=== PATIENT | male | born 1975 | race African-American/Black ===

== ENCOUNTER 2017-09-22 11:41 | Emergency (ER) | payer SELFPAY ==
[2017-09-22] MEDS: PENICILLIN G BENZATHINE LA 2,400,000 UNIT/4 ML DISP.SYRIN. IM ×2 (12:15)
[2017-09-22 12:26] LABS: NEGATIVE OBC STREP NEG; POSITIVE OBC STREP POS
== END 2017-09-22 12:36 | disposition home or self-care (01) ==
LOC: ER 11:41
DX: J02.0 Streptococcal pharyngitis (principal)
CPT/HCPCS: 87880; 96372; 99283; J0561

== ENCOUNTER 2018-09-13 17:32 | Emergency (ER) | payer OTHER ==
[~2018-09-13] VITALS: Ht 170.2 cm; Wt 97.5 kg
[2018-09-13] MEDS ORDERED: ONDANSETRON ODT 4 MG TAB.RAPDIS. PO ONE (19:30)
[2018-09-13] MEDS ORDERED: KETOROLAC 60 MG/2 ML VIAL. IM ONE (19:30)
--- NOTE | 2018-09-13 20:15 | PHYS DOC ---
Past Medical History Past Medical History: Hypertension Past Surgical History: No Surgical History Alcohol Use: Occasionally Drug Use: None Adult General Chief Complaint Chief Complaint: HEADACHE HPI HPI Patient is a 42 year old [f__sex] who presents with [] Review of Systems Review of Systems Constitutional: Denies fever or chills [] Eyes: Denies change in visual acuity, redness, or eye pain [] HENT: Denies nasal congestion or sore throat [] Respiratory: Denies cough or shortness of breath [] Cardiovascular: No additional information not addressed in HPI [] GI: Denies abdominal pain, nausea, vomiting, bloody stools or diarrhea [] : Denies dysuria or hematuria [] Musculoskeletal: Denies back pain or joint pain [] Integument: Denies rash or skin lesions [] Neurologic: Denies headache, focal weakness or sensory changes [] Endocrine: Denies polyuria or polydipsia [] All other systems were reviewed and found to be within normal limits, except as documented in this note. Current Medications Current Medications Current Medications Medications (Trade) Dose Ordered Sig/Magalie Start Time Stop Time Status Last Admin Dose Admin Ketorolac Tromethamine (Toradol Im) 60 mg 1X ONCE 09/13/18 19:30 09/13/18 19:31 DC 09/13/18 19:30 60 MG Ondansetron HCl (Zofran Odt) 4 mg 1X ONCE 09/13/18 19:30 09/13/18 19:31 DC 09/13/18 19:30 4 MG Allergies Allergies Allergies Coded Allergies Type Severity Reaction Last Updated Verified No Known Drug Allergies 09/22/17 No Physical Exam Physical Exam Constitutional: Well developed, well nourished, no acute distress, non-toxic appearance. [] HENT: Normocephalic, atraumatic, bilateral external ears normal, oropharynx moist, no oral exudates, nose normal. [] Eyes: PERRLA, EOMI, conjunctiva normal, no discharge. [] Neck: Normal range of motion, no tenderness, supple, no stridor. [] Cardiovascular:Heart rate regular rhythm, no murmur [] Lungs & Thorax: Bilateral breath sounds clear to auscultation [] Abdomen: Bowel sounds normal, soft, no tenderness, no masses, no pulsatile masses. [] Skin: Warm, dry, no erythema, no rash. [] Back: No tenderness, no CVA tenderness. [] Extremities: No tenderness, no cyanosis, no clubbing, ROM intact, no edema. [] Neurologic: Alert and oriented X 3, normal motor function, normal sensory function, no focal deficits noted. [] Psychologic: Affect normal, judgement normal, mood normal. [] Current Patient Data Vital Signs Vital Signs Date Time Temp Pulse Resp B/P (MAP) Pulse Ox O2 Delivery O2 Flow Rate FiO2 09/13/18 19:44 86 16 98 09/13/18 17:46 98.8 156/94 (114) Room Air 98.8 EKG EKG [] Radiology/Procedures Radiology/Procedures [] Course & Med Decision Making Course & Med Decision Making Pertinent Labs and Imaging studies reviewed. (See chart for details) [] Dragon Disclaimer Dragon Disclaimer This electronic medical record was generated, in whole or in part, using a voice recognition dictation system. Departure Departure Impression: Primary Impression: Headache Disposition: 01 HOME, SELF-CARE Condition: STABLE Referrals: NO PCP (PCP) Patient Instructions: General Headache Without Cause Additional Instructions: You may continue your at home headache medications. Follow-up with your primary care provider for further management of your chronic migraines. If worsening return to the emergency department. BRENDA MONROY APRN Sep 13, 2018 20:15
[2018-09-13 20:27] VITALS: BP 144/82
== END 2018-09-13 20:28 | disposition home or self-care (01) ==
LOC: ER 17:32
DX: R51 Headache (principal); I10 Essential (primary) hypertension
CPT/HCPCS: 96372; 99283; J1885; Q0162

== ENCOUNTER 2018-11-23 21:53 | Inpatient (IN) | payer SELFPAY ==
[~2018-11-23] VITALS: Ht 170.2 cm; Wt 108.9 kg
--- NOTE | 2018-11-23 23:08 | PHYS DOC ---
Past Medical History Past Medical History: Hypertension (ATIF MALIN APRN) Past Surgical History: No Surgical History (ATIF MALIN APRN) Alcohol Use: Occasionally Drug Use: None (ATIF MALIN APRN) Adult General Chief Complaint Chief Complaint: ABDOMINAL PAIN HPI HPI 42-year-old male presents to ER via POV with complaints of 3 day history of right upper quadrant pain and abdominal bloating. Patient reports pain increases after eating. He reports he has never had gallbladder issues in the past. He denies any N/V/D, fever, urinary sxs, CP/palpitations, SOA, or back pain. He reports he took aspirin on Sat. for the pain otherwise no other OTC meds. He reports he did drink a beer tonight. (ATIF MALIN APRN) Review of Systems Review of Systems Constitutional: Denies fever or chills [] Eyes: Denies change in visual acuity, redness, or eye pain [] HENT: Denies nasal congestion or sore throat [] Respiratory: Denies cough or shortness of breath [] Cardiovascular: No additional information not addressed in HPI [] GI: Denies nausea, vomiting, bloody stools or diarrhea. Reports RUQ pain with abd bloating : Denies dysuria or hematuria [] Musculoskeletal: Denies back pain or joint pain [] Integument: Denies rash or skin lesions [] Neurologic: Denies headache, focal weakness or sensory changes [] All other systems were reviewed and found to be within normal limits, except as documented in this note. (ATIF MALIN APRN) Current Medications Current Medications Current Medications Medications (Trade) Dose Ordered Sig/Magalie Start Time Stop Time Status Last Admin Dose Admin Sodium Chloride 1,000 ml @ 1,000 mls/hr 1X ONCE 11/23/18 23:30 11/24/18 00:29 DC 11/23/18 23:18 1,000 MLS/HR (WOLFGANG DIAS DO) Allergies Allergies Allergies Coded Allergies Type Severity Reaction Last Updated Verified No Known Drug Allergies 09/22/17 No (WOLFGANG DIAS DO) Physical Exam Physical Exam Constitutional: Well developed, well nourished, no acute distress, non-toxic appearance. [] HENT: Normocephalic, atraumatic, bilateral ears normal, mucous membranes pink/ dry, no oral exudates, nose normal. [] Eyes: Pupils equal, conjunctiva normal, no discharge. [] Neck: Normal range of motion, no tenderness, supple, no stridor. [] Cardiovascular: Heart rate regular rhythm- 90's during exam, no murmur [] Lungs & Thorax: Bilateral breath sounds clear to auscultation. Resp. equal/ nonlabored Abdomen: Bowel sounds normal, soft/obese, tender RUQ, no rebound tenderness, no masses, no pulsatile masses. [] Skin: Warm, dry, no erythema, no rash. [] Back: No tenderness, no CVA tenderness. [] Extremities: No tenderness, no cyanosis, no clubbing, ROM intact, no edema. [] Neurologic: Alert and oriented X 3, normal motor function, normal sensory function, no focal deficits noted. [] Psychologic: Affect normal, judgement normal, mood normal. [] (REFFITT,ATIF Dorantes APRN) Current Patient Data Vital Signs Vital Signs Date Time Temp Pulse Resp B/P (MAP) Pulse Ox O2 Delivery O2 Flow Rate FiO2 11/23/18 23:30 94 18 156/84 (108) 96 Room Air 11/23/18 21:53 98.7 98.7 (DIAS,WOLFGANG R DO) Lab Values Laboratory Tests Test 11/23/18 23:00 White Blood Count 12.1 x10^3/uL (4.0-11.0) H Red Blood Count 5.07 x10^6/uL (4.30-5.70) Hemoglobin 14.1 g/dL (13.0-17.5) Hematocrit 42.6 % (39.0-53.0) Mean Corpuscular Volume 84 fL (79-100) Mean Corpuscular Hemoglobin 28 pg (25-35) Mean Corpuscular Hemoglobin Concent 33 g/dL (31-37) Red Cell Distribution Width 14.0 % (11.5-14.5) Platelet Count 218 x10^3/uL (140-400) Neutrophils (%) (Auto) 65 % (31-73) Lymphocytes (%) (Auto) 26 % (24-48) Monocytes (%) (Auto) 7 % (0-9) Eosinophils (%) (Auto) 1 % (0-3) Basophils (%) (Auto) 1 % (0-3) Neutrophils # (Auto) 7.8 x10^3uL (1.8-7.7) H Lymphocytes # (Auto) 3.2 x10^3/uL (1.0-4.8) Monocytes # (Auto) 0.9 x10^3/uL (0.0-1.1) Eosinophils # (Auto) 0.1 x10^3/uL (0.0-0.7) Basophils # (Auto) 0.1 x10^3/uL (0.0-0.2) Sodium Level 138 mmol/L (136-145) Potassium Level 3.8 mmol/L (3.5-5.1) Chloride Level 99 mmol/L (98-107) Carbon Dioxide Level 28 mmol/L (21-32) Anion Gap 11 (6-14) Blood Urea Nitrogen 12 mg/dL (8-26) Creatinine 1.0 mg/dL (0.7-1.3) Estimated GFR (Cockcroft-Gault) 100.1 BUN/Creatinine Ratio 12 (6-20) Glucose Level 187 mg/dL (70-99) H Calcium Level 8.7 mg/dL (8.5-10.1) Total Bilirubin 0.3 mg/dL (0.2-1.0) Aspartate Amino Transferase (AST) 19 U/L (15-37) Alanine Aminotransferase (ALT) 37 U/L (16-63) Alkaline Phosphatase 65 U/L (46-116) Total Protein 7.2 g/dL (6.4-8.2) Albumin 3.6 g/dL (3.4-5.0) Albumin/Globulin Ratio 1.0 (1.0-1.7) Lipase 01648 U/L (73-393) H Ethyl Alcohol Level < 10 mg/dL (0-10) Laboratory Tests 11/23/18 23:00 Laboratory Tests 11/23/18 23:00 (WOLFGANG DIAS DO) Lab Values Laboratory Tests Test 11/23/18 23:00 White Blood Count 12.1 x10^3/uL (4.0-11.0) H Red Blood Count 5.07 x10^6/uL (4.30-5.70) Hemoglobin 14.1 g/dL (13.0-17.5) Hematocrit 42.6 % (39.0-53.0) Mean Corpuscular Volume 84 fL (79-100) Mean Corpuscular Hemoglobin 28 pg (25-35) Mean Corpuscular Hemoglobin Concent 33 g/dL (31-37) Red Cell Distribution Width 14.0 % (11.5-14.5) Platelet Count 218 x10^3/uL (140-400) Neutrophils (%) (Auto) 65 % (31-73) Lymphocytes (%) (Auto) 26 % (24-48) Monocytes (%) (Auto) 7 % (0-9) Eosinophils (%) (Auto) 1 % (0-3) Basophils (%) (Auto) 1 % (0-3) Neutrophils # (Auto) 7.8 x10^3uL (1.8-7.7) H Lymphocytes # (Auto) 3.2 x10^3/uL (1.0-4.8) Monocytes # (Auto) 0.9 x10^3/uL (0.0-1.1) Eosinophils # (Auto) 0.1 x10^3/uL (0.0-0.7) Basophils # (Auto) 0.1 x10^3/uL (0.0-0.2) Sodium Level 138 mmol/L (136-145) Potassium Level 3.8 mmol/L (3.5-5.1) Chloride Level 99 mmol/L (98-107) Carbon Dioxide Level 28 mmol/L (21-32) Anion Gap 11 (6-14) Blood Urea Nitrogen 12 mg/dL (8-26) Creatinine 1.0 mg/dL (0.7-1.3) Estimated GFR (Cockcroft-Gault) 100.1 BUN/Creatinine Ratio 12 (6-20) Glucose Level 187 mg/dL (70-99) H Calcium Level 8.7 mg/dL (8.5-10.1) Total Bilirubin 0.3 mg/dL (0.2-1.0) Aspartate Amino Transferase (AST) 19 U/L (15-37) Alanine Aminotransferase (ALT) 37 U/L (16-63) Alkaline Phosphatase 65 U/L (46-116) Total Protein 7.2 g/dL (6.4-8.2) Albumin 3.6 g/dL (3.4-5.0) Albumin/Globulin Ratio 1.0 (1.0-1.7) Lipase 78000 U/L (73-393) H Ethyl Alcohol Level < 10 mg/dL (0-10) Laboratory Tests 11/23/18 23:00 Laboratory Tests 11/23/18 23:00 (ATIF MALIN APRN) EKG EKG [] (ATIF MALIN APRN) Radiology/Procedures Radiology/Procedures PROCEDURE: ABDOMEN LTD Clinical History: Right upper quadrant pain Technique: Sonographic examination of the right upper quadrant of the abdomen was performed and multiple static images were obtained. Comparison: none Findings: The majority of the liver is visualized and appears homogeneous. There is increased echogenicity which further limits ultrasound sensitivity for a possible solid liver lesion. The common bile duct appears normal and measures 5 mm in diameter. The gallbladder is contracted but likely normal. The pancreas is not well visualized due to overlying bowel gas. The right kidney appears normal and measures 12 cm in length. Impression: 1. Fatty infiltration of the liver. 2. No evidence of gallbladder disease. Electronically signed by: Misael Hudson III, MD (11/24/2018 12:05 AM) [facility] DICTATED and SIGNED BY: MISAEL HUDSON III, MD DATE: 11/24/18 0005 (ATIF MALIN APRN) Course & Med Decision Making Course & Med Decision Making Pertinent Labs and Imaging studies reviewed. (See chart for details) Pt was evaluated in the ER for c/o RUQ pain [place] [address] on his labs. Discussed this finding with pt and he continued to report he is not a heavy drinker and had only 1 beer earlier with his alcohol level <10 on labs. Pt had US of RUQ as he reported pain increased after meals- fatty liver noted otherwise no acute findings reported. Discussed admit with pt for further care/monitoring along with NPO status- he is agreeable with admit plan. Pt was provided with IV flds/pain meds and with admit with maintenance flds. Will admit to hospitalist services for further care/monitoring and consult GI with admit orders. (ATIF MALIN APRN) Dragon Disclaimer Dragon Disclaimer This electronic medical record was generated, in whole or in part, using a voice recognition dictation system. (ATIF MALIN APRN) Departure Departure Impression: Primary Impression: Acute pancreatitis Additional Impression: Abdominal pain Disposition: ADMITTED INPATIENT Admitting Physician: Other (Dr Prasad) (ATIF MALIN APRN) Condition: STABLE Referrals: NO PCP (PCP) Attending Signature Attending Signature I have reviewed the PA/CLOTHES SEPARATOR's note and plan of care. I was available for consultation as needed during the patient's visit in the emergency department. I agree with the clinical impression, plan, and disposition. (WOLFGANG DIAS DO) Problem Qualifiers ATIF MALIN APRN Nov 23, 2018 23:08 WOLFGANG DIAS DO Dec 12, 2018 13:16
[2018-11-23 23:09] LABS: BASO # 0.1 x10^3/uL (0.0-0.2); BASO % 1 % (0-3); EOS # 0.1 x10^3/uL (0.0-0.7); EOS % 1 % (0-3); HEMATOCRIT 42.6 % (39.0-53.0); HEMOGLOBIN 14.1 g/dL (13.0-17.5); LYMPH # 3.2 x10^3/uL (1.0-4.8); LYMPH % 26 % (24-48); MEAN CORPUSCULAR HEMOGLOBIN 28 pg (25-35); MEAN CORPUSCULAR HGB CONC 33 g/dL (31-37); MEAN CORPUSCULAR VOLUME 84 fL (79-100); MONO # 0.9 x10^3/uL (0.0-1.1); MONO % 7 % (0-9); NEUT # 7.8 x10^3uL (1.8-7.7); NEUT % 65 % (31-73); PLATELET COUNT 218 x10^3/uL (140-400); RED BLOOD COUNT 5.07 x10^6/uL (4.30-5.70); WHITE BLOOD COUNT 12.1 x10^3/uL (4.0-11.0)
[2018-11-23 23:17] LABS: CALCIUM 8.7 mg/dL (8.5-10.1); GFR 100.1; POTASSIUM 3.8 mmol/L (3.5-5.1)
[2018-11-23 23:24] LABS: ALBUMIN 3.6 g/dL (3.4-5.0); TOTAL BILIRUBIN 0.3 mg/dL (0.2-1.0); TOTAL PROTEIN 7.2 g/dL (6.4-8.2)
[2018-11-23] MEDS ORDERED: IV NORMAL SALINE 1000ML BAG 1,000 ML IV ONE (23:30)
--- NOTE | 2018-11-24 00:08 | RAD ---
Clinical History: Right upper quadrant pain Technique: Sonographic examination of the right upper quadrant of the abdomen was performed and multiple static images were obtained. Comparison: none Findings: The majority of the liver is visualized and appears homogeneous. There is increased echogenicity which further limits ultrasound sensitivity for a possible solid liver lesion. The common bile duct appears normal and measures 5 mm in diameter. The gallbladder is contracted but likely normal. The pancreas is not well visualized due to overlying bowel gas. The right kidney appears normal and measures 12 cm in length. Impression: 1. Fatty infiltration of the liver. 2. No evidence of gallbladder disease. Electronically signed by: Raza Maravilla III, MD (11/24/2018 12:05 AM) [facility]
[2018-11-24] MEDS ORDERED: ONDANSETRON PF 4 MG/2 ML VIAL. IV PRN (01:30)
[2018-11-24] MEDS ORDERED: MORPHINE SULFATE 4 MG/ML VIAL. IV PRN (01:30)
[2018-11-24] MEDS: IV NORMAL SALINE 1000ML BAG 1,000 ML IV SCH ×2 (02:31→09:53)
[2018-11-24] MEDS ORDERED: LISI2.5T PO (02:50)
--- NOTE | 2018-11-24 02:51 | NUR ---
The patient, SANDRA VALENCIA, 42 y/o, M admitted by JÚNIOR ESPARZA MD, was given written information regarding hospital policies, unit procedures and contact persons. Valuables were checked and left with patient.
[2018-11-24 03:00] VITALS: BP 132/69
[2018-11-24 07:00] VITALS: BP 147/90
--- NOTE | 2018-11-24 09:07 | PDOC2 ---
GI CONSULT Reason For Consult: Acute pancreatitis HPI: HPI: 42 y/o male admitted through ER. RUQ/epigastric pain radiating to back x 3-4 days. No n/v, diarrhea, constipation, or bleeding. Possibly precipitated by drinking more than usual because his cousins came to visit. Elevated WBC and lipase in ER. No CT done but normal GB on US. Says hasn't needed pain meds and feels hungry, would like to go home. Occasional heartburn improved w/ Tums PRN. No dysphagia or weight loss. No previous EGD or colonoscopy. No GB, liver, pancreas, or PUD history. Occasionally uses BC powder for headaches. Flips houses for a living. PMH: PMH: HTN FH: Family History: No pertinent hx (denies GI cancers, pancreatitis, and GB disease) Social History: Smoke: 1 pack per day ALCOHOL: heavy (says usually about 5 beers weekly but more recently for work and w/ family visiting) Drugs: None ROS: GEN: Denies fevers, chills, sweats HEENT: Denies blurred vision, sore throat CV: Denies chest pain RESP: Denies shortness of air, cough GI: Per HPI : Denies hematuria, dysuria ENDO: Denies weight changes NEURO: Denies confusion, dizziness MSK: Denies weakness, joint pain/swelling SKIN: Denies jaundice, pruritus Vitals: Vitals: Vital Signs Date Time Temp Pulse Resp B/P (MAP) Pulse Ox O2 Delivery O2 Flow Rate FiO2 11/24/18 07:00 97.7 73 18 147/90 (109) 96 Room Air 97.7 Labs: Labs: Laboratory Tests Test 11/23/18 23:00 White Blood Count 12.1 x10^3/uL (4.0-11.0) Red Blood Count 5.07 x10^6/uL (4.30-5.70) Hemoglobin 14.1 g/dL (13.0-17.5) Hematocrit 42.6 % (39.0-53.0) Mean Corpuscular Volume 84 fL (79-100) Mean Corpuscular Hemoglobin 28 pg (25-35) Mean Corpuscular Hemoglobin Concent 33 g/dL (31-37) Red Cell Distribution Width 14.0 % (11.5-14.5) Platelet Count 218 x10^3/uL (140-400) Neutrophils (%) (Auto) 65 % (31-73) Lymphocytes (%) (Auto) 26 % (24-48) Monocytes (%) (Auto) 7 % (0-9) Eosinophils (%) (Auto) 1 % (0-3) Basophils (%) (Auto) 1 % (0-3) Neutrophils # (Auto) 7.8 x10^3uL (1.8-7.7) Lymphocytes # (Auto) 3.2 x10^3/uL (1.0-4.8) Monocytes # (Auto) 0.9 x10^3/uL (0.0-1.1) Eosinophils # (Auto) 0.1 x10^3/uL (0.0-0.7) Basophils # (Auto) 0.1 x10^3/uL (0.0-0.2) Sodium Level 138 mmol/L (136-145) Potassium Level 3.8 mmol/L (3.5-5.1) Chloride Level 99 mmol/L (98-107) Carbon Dioxide Level 28 mmol/L (21-32) Anion Gap 11 (6-14) Blood Urea Nitrogen 12 mg/dL (8-26) Creatinine 1.0 mg/dL (0.7-1.3) Estimated GFR (Cockcroft-Gault) 100.1 BUN/Creatinine Ratio 12 (6-20) Glucose Level 187 mg/dL (70-99) Calcium Level 8.7 mg/dL (8.5-10.1) Total Bilirubin 0.3 mg/dL (0.2-1.0) Aspartate Amino Transf (AST/SGOT) 19 U/L (15-37) Alanine Aminotransferase (ALT/SGPT) 37 U/L (16-63) Alkaline Phosphatase 65 U/L (46-116) Total Protein 7.2 g/dL (6.4-8.2) Albumin 3.6 g/dL (3.4-5.0) Albumin/Globulin Ratio 1.0 (1.0-1.7) Lipase 31002 U/L (73-393) Ethyl Alcohol Level < 10 mg/dL (0-10) Allergies: Coded Allergies: No Known Drug Allergies (Unverified , 09/22/17) Medications: Current Medications Medications (Trade) Dose Ordered Sig/Magalie Route PRN Reason Start Time Stop Time Status Last Admin Dose Admin Sodium Chloride 1,000 ml @ 1,000 mls/hr 1X ONCE IV 11/23/18 23:30 11/24/18 00:29 DC 11/23/18 23:18 Sodium Chloride 1,000 ml @ 125 mls/hr Q8H IV 11/24/18 02:00 11/25/18 01:59 11/24/18 02:31 Imaging: Imaging: Abd US Findings: The majority of the liver is visualized and appears homogeneous. There is increased echogenicity which further limits ultrasound sensitivity for a possible solid liver lesion. The common bile duct appears normal and measures 5 mm in diameter. The gallbladder is contracted but likely normal. The pancreas is not well visualized due to overlying bowel gas. The right kidney appears normal and measures 12 cm in length. Impression: 1. Fatty infiltration of the liver. 2. No evidence of gallbladder disease. PE: GEN: NAD HEENT: Atraumatic, PERRL LUNGS: CTAB HEART: RRR ABD: quiet BS, S/ND - currently non-tender EXTREMITY: No edema SKIN: No rashes, no jaundice NEURO/PSYCH: A & O 3 A/P: A/P: Pancreatitis - likely related to alcohol Hepatic steatosis - normal LFTs Leukocytosis CRC screen - average risk HTN - per primary -- ADAT, consider DC if tolerates. Consider CT if pain worsens/persists. Minimize alcohol consumption. JACQUI PINK Nov 24, 2018 09:07
--- NOTE | 2018-11-24 10:40 | NUR ---
SW following pt for anticipated dc needs. Chart reviewed. Pt lives at home with family. SW phoned PAT team for assessment and eval for ETOH use. Will continue to assess.
[2018-11-24 11:04] VITALS: BP 143/103
--- NOTE | 2018-11-24 11:24 | HP ---
ADMIT DATE: 11/24/2018 CHIEF COMPLAINT: Abdominal pain. HISTORY OF PRESENT ILLNESS: The patient is a pleasant 42-year-old male who states he drank a lot of beer and several [place] teas. He states they were extra strong. Basically, he presented with abdominal pain and we noted that he has pancreatitis with a lipase level of 16,000. Describes his pain as agonizing and rated at 10/10. He has associated wheezing and nausea. It has been occurring for several days. I discussed the case with ER physician. We are going to admit the patient and consult GI. PAST MEDICAL HISTORY: Probable alcoholism and hypertension. ALLERGIES: None. FAMILY HISTORY: Diabetes. SOCIAL HISTORY: He drinks. He does not smoke or take drugs. MEDICATIONS: Reviewed. He is on one home medication, which is lisinopril. REVIEW OF SYSTEMS: GENERAL: No history of weight change, weakness or fevers. SKIN: No bruising, hair changes or rashes. EYES: No blurred, double or loss of vision. NOSE AND THROAT: No history of nosebleeds, hoarseness or sore throat. HEART: No history of palpitations, chest pain or shortness of breath on exertion. LUNGS: Denies cough, hemoptysis, wheezing or shortness of breath. GASTROINTESTINAL: He complains of abdominal pain. GENITOURINARY: No history of frequency, urgency, hesitancy or nocturia. NEUROLOGIC: Denies history of numbness, tingling, tremor or weakness. PSYCHIATRIC: No history of panic, anxiety or depression. ENDOCRINE: No history of heat or cold intolerance, polyuria or polydipsia. EXTREMITIES: Denies muscle weakness, joint pain, pain on walking or stiffness. PHYSICAL EXAMINATION: VITAL SIGNS: Temperature afebrile, pulse 80, respirations 16 and blood pressure 140/90. GENERAL: He is alert and cooperative. HEART: Normal S1, S2. LUNGS: Clear. ABDOMEN: Soft and tender. EXTREMITIES: Trace edema. SKIN: No rash. ENDOCRINE: No thyromegaly. LYMPHATICS: No cervical nodes. HEMATOPOIETIC: No bruising. PSYCHIATRIC: He is stable. LABORATORY DATA: White count 12, otherwise his hematology is normal. Glucose is 187. Otherwise, the electrolytes are normal. Lipase is ____. ASSESSMENT AND PLAN: Alcoholic pancreatitis. The patient has been admitted. He is n.p.o., IV fluids, daily lipase, frequent labs, DVT prophylaxis, full code, home medications, consult GI, p.r.n. Zofran and p.r.n. morphine. JOESPH MCKENNA DO DR: FÉLIX/clifford JOB#: [id number] / [id number]
[2018-11-24] MEDS ORDERED: PANTOPRAZOLE 40 MG TABLET.DR. PO SCH (11:30)
[2018-11-24] MEDS ORDERED: AMINO AC 3%/ELECTROLYTE/GLYCER 1,000 ML IV SCH (11:30)
[2018-11-24 15:00] VITALS: BP 164/114
--- NOTE | 2018-11-24 16:23 | NUR ---
SW following pt. Pt seen by Salvador and is provided with OP treatment Resources. Pt is able to follow up with [facility] for services.
--- NOTE | 2018-11-24 19:58 | DS ---
DATE OF DISCHARGE: 11/24/2018 ADMISSION DIAGNOSIS: Alcoholic pancreatitis. DISCHARGE DIAGNOSIS: Resolving alcoholic pancreatitis. CONSULTS: GI. PROCEDURES: None. HOSPITAL COURSE: The patient is a pleasant middle-aged male who drinks too much. He drank a bunch of [place] iced tea. He states they were extra strong, at least seven shots of alcohol in each one. He also drank some beer. He presented with alcoholic pancreatitis. We admitted the patient, consulted GI. GI saw him this morning. Apparently, they have advanced his diet. The nurse called me and explained he is doing well and wants to go. We plan to discharge with close outpatient followup. DISPOSITION: Home. ACTIVITY: As tolerated. DIET: Low sodium. MEDICATIONS: Please see the MRAD. TOTAL TIME ON DISCHARGE: 31 minutes. JOESPH MCKENNA DO DR: FÉLIX/clifford JOB#: [id number] / [id number]
== END 2018-11-24 17:40 | disposition home or self-care (01) | DRG 440 ==
LOC: ER 21:53 → 5 NORTH 23:50
PROVIDERS: ADMIT Internal Medicine; ATTEND Internal Medicine
DX: K85.20 Alcohol induced acute pancreatitis without necrosis or infection (principal); K76.0 Fatty (change of) liver, not elsewhere classified; I10 Essential (primary) hypertension; F17.210 Nicotine dependence, cigarettes, uncomplicated; Z83.3 Family history of diabetes mellitus
CPT/HCPCS: 36415; 76705; 80053; 80061; 83690; 85025; 96360; G0480; J7030; 99285-25

== ENCOUNTER 2018-12-11 10:39 | Emergency (ER) | payer SELFPAY ==
[~2018-12-11] VITALS: Ht 170.2 cm; Wt 104.3 kg
[~2018-12-11 10:39] MED LIST: LISI2.5T PO
[2018-12-11 10:53] VITALS: BP 152/83
[2018-12-11] MEDS ORDERED: PRED50TA PO (11:08)
--- NOTE | 2018-12-11 11:08 | PHYS DOC ---
Past Medical History Past Medical History: Hypertension Past Surgical History: No Surgical History Alcohol Use: Occasionally Drug Use: None Adult General Chief Complaint Chief Complaint: SORE THROAT HPI HPI Patient is a 43 year old male with history of hypertension who presents to the ED today complaining of sore throat for 3 days. Patient denies any fever coughing or congestion. He states he usually gets a Bicillin injection. Review of Systems Review of Systems Constitutional: Denies fever or chills [] Eyes: Denies change in visual acuity, redness, or eye pain [] HENT: Reports sore throat. Denies nasal congestion Respiratory: Denies cough or shortness of breath [] Cardiovascular: No additional information not addressed in HPI [] GI: Denies abdominal pain, nausea, vomiting, bloody stools or diarrhea [] : Denies dysuria or hematuria [] Musculoskeletal: Denies back pain or joint pain [] Integument: Denies rash or skin lesions [] Neurologic: Denies headache, focal weakness or sensory changes [] All other systems were reviewed and found to be within normal limits, except as documented in this note. Allergies Allergies Allergies Coded Allergies Type Severity Reaction Last Updated Verified No Known Drug Allergies 09/22/17 No Physical Exam Physical Exam Constitutional: Well developed, well nourished, no acute distress, non-toxic appearance. [] HENT: Normocephalic, atraumatic, bilateral external ears normal, oropharynx moist, no oral exudates, nose normal. [] +2 tonsils with erythema and no exudate +2 anterior cervical adenopathy. Eyes: PERRLA, EOMI, conjunctiva normal, no discharge. [] Neck: Normal range of motion, no tenderness, supple, no stridor. [] Cardiovascular:Heart rate regular rhythm, no murmur [] Lungs & Thorax: Bilateral breath sounds clear to auscultation [] Abdomen: Bowel sounds normal, soft, no tenderness, no masses, no pulsatile masses. [] Skin: Warm, dry, no erythema, no rash. [] Back: No tenderness, no CVA tenderness. [] Extremities: No tenderness, no cyanosis, no clubbing, ROM intact, no edema. [] Neurologic: Alert and oriented X 3, normal motor function, normal sensory function, no focal deficits noted. [] Psychologic: Affect normal, judgement normal, mood normal. [] Current Patient Data Vital Signs Vital Signs Date Time Temp Pulse Resp B/P (MAP) Pulse Ox O2 Delivery O2 Flow Rate FiO2 12/11/18 10:53 99.1 99 16 152/83 (106) 97 Room Air 99.1 EKG EKG [] Radiology/Procedures Radiology/Procedures [] Course & Med Decision Making Course & Med Decision Making Pertinent Labs and Imaging studies reviewed. (See chart for details) This is a 43-year-old male patient presented to the ED today with sore throat for 3 days. Positive rapid strep. Patient requesting Bicillin injection. Patient was given penicillin and Decadron IM. Discharged with instructions to take Tylenol Motrin for pain or fever. Saltwater gargles also recommended. Follow-up with PCP next week. Provided return precautions and discharged in stable condition. Return precautions provided. Dragon Disclaimer Dragon Disclaimer This electronic medical record was generated, in whole or in part, using a voice recognition dictation system. Departure Departure Impression: Primary Impression: Strep throat Disposition: HOME, SELF-CARE Condition: STABLE Referrals: NO PCP (PCP) AGAPITO PEREZ MD Follow up in one week Patient Instructions: Strep Throat Additional Instructions: You were evaluated in the emergency room and noted to have strep infection. You were treated in the emergency room. We put you on prednisone, take it as prescribed. Please take Tylenol or Motrin for pain or fever. Saltwater gargles also recommended. Follow-up with your doctor in 1-2 weeks you can also follow- up with the provided ENT doctor. Please return to the ED at any point symptoms worsen. Scripts Prednisone (PREDNISONE) 50 Mg Tablet 1 TAB PO DAILY, #5 TAB Prov: HELEN GARCIA APRN 12/11/18 HELEN GARCIA APRN Dec 11, 2018 11:08
[2018-12-11] MEDS ORDERED: PENICILLIN G BENZATHINE LA 1,200,000 UNIT/2 ML DISP.SYRIN. IM ONE (11:15)
[2018-12-11] MEDS ORDERED: DEXAMETHASONE SOD PHOS 4 MG/ML VIAL IM ONE (11:15)
[2018-12-11] MEDS ORDERED: LIDOCAINE 2% VISCOUS 15 ML SOLUTION. SWSW ONE (11:15)
== END 2018-12-11 11:22 | disposition home or self-care (01) ==
LOC: ER 10:39
DX: J02.0 Streptococcal pharyngitis (principal); B95.5 Unspecified streptococcus as the cause of diseases classified elsewhere; I10 Essential (primary) hypertension
CPT/HCPCS: 87880; 96372; 99284; J0561; J1100

== ENCOUNTER 2019-04-28 17:28 | Emergency (ER) | payer OTHER ==
[~2019-04-28] VITALS: Ht 170.2 cm; Wt 104.3 kg
[~2019-04-28 17:28] MED LIST changes: +PRED50TA PO
[2019-04-28 18:09] VITALS: BP 158/107
[2019-04-28] MEDS ORDERED: HYDR-2761 PO (18:24)
--- NOTE | 2019-04-28 18:24 | PHYS DOC ---
Past Medical History Past Medical History: Hypertension (UNIQUE CHILDS APRN) Past Surgical History: No Surgical History (UNIQUE CHILDS APRN) Alcohol Use: Occasionally Drug Use: None (UNIQUE CHILDS APRN) Adult General Chief Complaint Chief Complaint: DENTAL PROBLEM HPI HPI Patient is a 43 year old Male who presents with Left upper molar tooth pain x 1 week. Has a dentist appointment on Thursday. (UNIQUE CHILDS APRN) Review of Systems Review of Systems Constitutional: Denies fever or chills [] HENT: Denies nasal congestion or sore throat. Dental pain [] Neurologic: headache, denies focal weakness or sensory changes [] All other systems were reviewed and found to be within normal limits, except as documented in this note. (UNIQUE CHILDS APRN) Allergies Allergies Allergies Coded Allergies Type Severity Reaction Last Updated Verified No Known Drug Allergies 09/22/17 No (WOLFGANG DIAS DO) Physical Exam Physical Exam Constitutional: Well developed, well nourished, no acute distress, non-toxic appearance. [] HENT: Normocephalic, atraumatic, bilateral external ears normal, oropharynx moist, no oral exudates, nose normal. Left upper molar cavity.[]ses. [] Skin: Warm, dry, no erythema, no rash. [] Neurologic: Alert and oriented X 3, normal motor function, normal sensory function, no focal deficits noted. [] Psychologic: Affect normal, judgement normal, mood normal. [] (UNIQUE CHILDS APRN) Current Patient Data Vital Signs Vital Signs Date Time Temp Pulse Resp B/P (MAP) Pulse Ox O2 Delivery O2 Flow Rate FiO2 04/28/19 18:09 98.3 98 16 158/107 (124) 97 Room Air 98.3 (WOLFGANG DIAS DO) EKG EKG [] (UNIQUE CHILDS APRN) Radiology/Procedures Radiology/Procedures [] (UNIQUE CHILDS APRN) Course & Med Decision Making Course & Med Decision Making Patient is a 43 year old Male who presents with Left upper molar tooth pain x 1 week. Has a dentist appointment on Thursday. Alert and oriented. Speaks in full clear sentences. No facial swelling. Gumline is not inflamed and there is no tenderness with palpation to the gumline or drainage. The tooth is a dental caries but has not broken. Patient states when the pain occurs he will also get a headache on the whole side of his face. Patient rates his pain a 8 out of 10. Denies fevers. Vital signs within normal limits. Skin pink warm and dry. Patient has a dental appointment on Thursday for follow-up. Patients to see the dentist on Thursday and take medication as prescribed. (UNIQUE CHILDS APRN) Dragon Disclaimer Dragon Disclaimer This electronic medical record was generated, in whole or in part, using a voice recognition dictation system. (UNIQUE CHILDS APRN) Departure Departure Impression: Primary Impression: Pain, dental Disposition: HOME, SELF-CARE Condition: STABLE Referrals: NO PCP (PCP) Patient Instructions: Dental Caries, Dental Pain Additional Instructions: Follow-up with dentist as plan. Take medications prescribed. Scripts Hydrocodone Bit/Acetaminophen (HYDROCODONE-APAP 5-325 ) 1 Tab Tablet 1 TAB PO PRN Q6HRS PRN for PAIN, #10 TAB 0 Refills Prov: UNIQUE CHILDS APRN 04/28/19 Attending Signature Attending Signature I have reviewed the PA/FLUID DESIGNER's note and plan of care. I was available for consultation as needed during the patient's visit in the emergency department. I agree with the clinical impression, plan, and disposition. (WOLFGANG DIAS DO) UNIQUE CHILDS APRN Apr 28, 2019 18:24 WOLFGANG DIAS DO Apr 30, 2019 04:54
== END 2019-04-28 18:31 | disposition home or self-care (01) ==
LOC: ER 17:28
DX: K08.89 Other specified disorders of teeth and supporting structures (principal); R51 Headache; I10 Essential (primary) hypertension
CPT/HCPCS: 99283

== ENCOUNTER 2019-05-03 23:36 | Emergency (ER) | payer OTHER ==
[~2019-05-03] VITALS: Ht 172.7 cm; Wt 88.9 kg
[~2019-05-03 23:36] MED LIST changes: +HYDR-2761 PO
--- NOTE | 2019-05-04 00:27 | PHYS DOC ---
Past Medical History Past Medical History: Diabetes-Type II, Hypertension Past Surgical History: No Surgical History Alcohol Use: Occasionally Drug Use: None Adult General Chief Complaint Chief Complaint: HEADACHE HPI HPI Patient is a 43 year old L presented ER today for evaluation of headache that been going on for about 3 days. Patient said the light and noise makes his headache worse. He said he has history of migraine headache, this is his typical headache. he denies any cough, no fever, no nausea or vomiting. Denies any blurry vision, no neck stiffness. Review of Systems Review of Systems See above Current Medications Current Medications Current Medications Medications (Trade) Dose Ordered Sig/Magalie Start Time Stop Time Status Last Admin Dose Admin Diphenhydramine HCl (Benadryl) 25 mg 1X ONCE 05/04/19 00:45 05/04/19 00:46 DC 05/04/19 01:18 25 MG Ketorolac Tromethamine (Toradol 30mg Vial) 30 mg 1X ONCE 05/04/19 01:30 05/04/19 01:35 DC 05/04/19 01:41 30 MG Metoclopramide HCl (Reglan Vial) 10 mg 1X ONCE 05/04/19 00:45 05/04/19 00:46 DC 05/04/19 01:18 10 MG Allergies Allergies Allergies Coded Allergies Type Severity Reaction Last Updated Verified No Known Drug Allergies 09/22/17 No Physical Exam Physical Exam Constitutional: Well developed, well nourished, no acute distress, non-toxic appearance. [] HENT: Normocephalic, atraumatic, bilateral external ears normal, oropharynx moist, no oral exudates, nose normal. [] Eyes: PERRLA, EOMI, conjunctiva normal, no discharge. [] Neck: Normal range of motion, no tenderness, supple, no stridor. [] Cardiovascular:Heart rate regular rhythm, no murmur [] Lungs & Thorax: Bilateral breath sounds clear to auscultation [] Abdomen: Bowel sounds normal, soft, no tenderness, no masses, no pulsatile masses. [] Skin: Warm, dry, no erythema, no rash. [] Back: No tenderness, no CVA tenderness. [] Extremities: No tenderness, no cyanosis, no clubbing, ROM intact, no edema. [] Neurologic: Alert and oriented X 3, normal motor function, normal sensory function, no focal deficits noted. [] Psychologic: Affect normal, judgement normal, mood normal. [] Current Patient Data Vital Signs Vital Signs Date Time Temp Pulse Resp B/P (MAP) Pulse Ox O2 Delivery O2 Flow Rate FiO2 05/03/19 23:55 98.2 86 18 150/105 (120) 94 Room Air 98.2 EKG EKG [] Radiology/Procedures Radiology/Procedures [[facility] [address] [place] [address] IMAGING REPORT Signed PATIENT: SANDRA VALENCIA LACCOUNT: [id number] : 1975 LOCATION: ER AGE: 43 SEX: M EXAM STATUS: REG ER ORD. PHYSICIAN: KAMINI VAUGHAN DO REASON: headache, hypertension PROCEDURE: CT HEAD WO CONTRAST CT HEAD WO CONTRAST Date: 05/04/2019 12:33 AM Clinical Indication: Headache, hypertension Comparison: None. Technique: 5 mm axial tomographic images were obtained of the head without contrast. These were viewed on brain and bone windows. One or more of the following dose reduction techniques were utilized: Automated exposure control (AEC), Adjustment of mA and/or kV according to patient size, Use of iterative reconstruction technique such as ASiR, CT scan done according to ALARA and image gently/image wisely Findings: The brain parenchyma is normal in attenuation. No intra- or extra-axial mass or fluid collection. No acute hemorrhage. The ventricles are normal in size, shape, and morphology. The garner-white matter junction is normal. The subarachnoid cisterns are patent. Maxillary sinus retention cysts. The visualized portions of the orbits and globes are normal. The mastoid air cells are clear. The dyeing machine back tender topogram shows no lytic lesion or fracture. Impression: No acute intracranial process. Electronically signed by: David Watkins MD (05/04/2019 1:10 AM) [facility] DICTATED and SIGNED BY: DAVID WATKINS MD DATE: 05/04/19 0110 Course & Med Decision Making Course & Med Decision Making Pertinent Labs and Imaging studies reviewed. (See chart for details) [] Dragon Disclaimer Dragon Disclaimer This electronic medical record was generated, in whole or in part, using a voice recognition dictation system. Departure Departure Impression: Primary Impression: Headache Disposition: HOME, SELF-CARE Condition: IMPROVED Referrals: NO PCP (PCP) follow up with your pcp for reevaluation this week. Patient Instructions: General Headache Without Cause Scripts Butalbital/Aspirin/Caffeine (FIORINAL 50-325-40 MG CAPSULE) 1 Each Capsule 1 EACH PO QID PRN for HEADACHE, #20 CAP Prov: KAMINI VAUGHAN DO 05/04/19 KAMINI VAUGHAN DO May 04, 2019 00:27
[2019-05-04] MEDS ORDERED: METOCLOPRAMIDE HCL 10 MG/2 ML VIAL. IV ONE (00:45)
[2019-05-04] MEDS ORDERED: diphenhydrAMINE 50 MG/ML VIAL IVP ONE (00:45)
--- NOTE | 2019-05-04 01:13 | RAD ---
CT HEAD WO CONTRAST Date: 05/04/2019 12:33 AM Clinical Indication: Headache, hypertension Comparison: None. Technique: 5 mm axial tomographic images were obtained of the head without contrast. These were viewed on brain and bone windows. One or more of the following dose reduction techniques were utilized: Automated exposure control (AEC), Adjustment of mA and/or kV according to patient size, Use of iterative reconstruction technique such as ASiR, CT scan done according to ALARA and image gently/image wisely Findings: The brain parenchyma is normal in attenuation. No intra- or extra-axial mass or fluid collection. No acute hemorrhage. The ventricles are normal in size, shape, and morphology. The garner-white matter junction is normal. The subarachnoid cisterns are patent. Maxillary sinus retention cysts. The visualized portions of the orbits and globes are normal. The mastoid air cells are clear. The setter cold rolling machine topogram shows no lytic lesion or fracture. Impression: No acute intracranial process. Electronically signed by: Mina Watkins MD (05/04/2019 1:10 AM) [facility]
[2019-05-04] MEDS ORDERED: KETOROLAC 30 MG/ML VIAL. IV ONE (01:30)
[2019-05-04] MEDS ORDERED: BUTA1CAP31 PO (01:57)
[2019-05-04 02:00] VITALS: BP 129/78
== END 2019-05-04 02:05 | disposition home or self-care (01) ==
LOC: ER 23:36
DX: G43.909 Migraine, unspecified, not intractable, without status migrainosus (principal); E11.9 Type 2 diabetes mellitus without complications; I10 Essential (primary) hypertension
CPT/HCPCS: 70450; 96374; 96375; 99284; J1200; J1885; J2765

== ENCOUNTER 2022-01-13 22:05 | Emergency (ER) | payer SELFPAY ==
[~2022-01-13] VITALS: Ht 170.2 cm; Wt 103.2 kg
[~2022-01-13 22:05] MED LIST changes: +BUTA1CAP31 PO; -LISI2.5T PO; +LISI2.5T12 PO
--- NOTE | 2022-01-13 23:03 | PHYS DOC ---
Past Medical History Past Medical History: Diabetes-Type II, High Cholesterol, Hypertension Past Surgical History: No Surgical History Smoking Status: Current Every Day Smoker Alcohol Use: Occasionally Drug Use: None General Adult EDM: Chief Complaint: CHEST PAIN HPI: HPI: 46-year-old male, past medical history of hypertension, diabetes, high cholesterol, daily smoker, presents with 8 hours of substernal chest pain and heaviness 7/10 in intensity. Patient states he had a hamburger at 3 PM and then 1 hour later felt chest pain/pressure however the pain is persistent, not affected with movement or exertion. Denies burping, nausea or reflux or epigastric pain. Denies shortness of breath, cough, fever. Review of Systems: Review of Systems: Constitutional: Denies fever or chills. [] Eyes: Denies change in visual acuity. [] HENT: Denies nasal congestion or sore throat. [] Respiratory: Denies cough or shortness of breath. [] Cardiovascular: + chest pain, no edema. [] GI: Denies abdominal pain, nausea, vomiting, bloody stools or diarrhea. [] : Denies dysuria. [] Musculoskeletal: Denies back pain or joint pain. [] Integument: Denies rash. [] Neurologic: Denies headache, focal weakness or sensory changes. [] Endocrine: Denies polyuria or polydipsia. [] Lymphatic: Denies swollen glands. [] Psychiatric: Denies depression or anxiety. [] Heart Score: C/O Chest Pain: Yes HEART Score for Chest Pain: HEART Score for Chest Pain Response (Comments) Value History Slighlty/Non-Suspicious 0 ECG Normal 0 Age < 45 0 Risk Factors >3 Risk Factors or Hx CAD 2 Total 2 Risk Factors: Risk Factors: DM, Current or recent (<one month) smoker, HTN, HLP, family history of CAD, obesity. Risk Scores: Score 0 - 3: 2.5% MACE over next 6 weeks - Discharge Home Score 4 - 6: 20.3% MACE over next 6 weeks - Admit for Clinical Observation Score 7 - 10: 72.7% MACE over next 6 weeks - Early Invasive Strategies Current Medications: Current Medications Medications (Trade) Dose Ordered Sig/Magalie Start Time Stop Time Status Last Admin Dose Admin Al Hydroxide/Mg Hydroxide (Mylanta Plus Xs) 30 ml 1X ONCE 01/13/22 23:30 01/13/22 23:31 Aspirin (Elpidio Aspirin) 325 mg 1X ONCE 01/13/22 23:30 01/13/22 23:31 Famotidine (Pepcid Vial) 20 mg 1X ONCE 01/13/22 23:30 01/13/22 23:31 Morphine Sulfate (Morphine Sulfate) 4 mg 1X ONCE 01/13/22 23:30 01/13/22 23:31 Ondansetron HCl (Zofran) 4 mg 1X ONCE 01/13/22 23:30 01/13/22 23:31 Allergies: Allergies: Allergies Coded Allergies Type Severity Reaction Last Updated Verified No Known Drug Allergies 07/15/19 No Physical Exam: PE: Constitutional: Well developed, well nourished, no acute distress, non-toxic appearance. [] HENT: Normocephalic, atraumatic, bilateral external ears normal, oropharynx moist, no oral exudates, nose normal. [] Eyes: PERRLA, EOMI, conjunctiva normal, no discharge. [] Neck: Normal range of motion, no tenderness, supple, no stridor. [] Cardiovascular:Heart rate regular rhythm, no murmur [] Lungs & Thorax: Bilateral breath sounds clear to auscultation [] Abdomen: Obese, bowel sounds normal, soft, no tenderness, no masses, no pulsatile masses. [] Skin: Warm, dry, no erythema, no rash. [] Back: No tenderness, no CVA tenderness. [] Extremities: No tenderness, no cyanosis, no clubbing, ROM intact, no edema. [] Neurologic: Alert and oriented X 3, normal motor function, normal sensory function, no focal deficits noted. [] Psychologic: Affect normal, judgement normal, mood normal. [] Current Patient Data: Vital Signs: Vital Signs Date Time Temp Pulse Resp B/P (MAP) Pulse Ox O2 Delivery O2 Flow Rate FiO2 01/13/22 22:09 98.4 94 16 185/101 (129) 98 Room Air 98.4 EKG: EKG: [] Radiology/Procedures: Radiology/Procedures: [] Course & Med Decision Making: Course & Med Decision Making Pertinent Labs and Imaging studies reviewed. (See chart for details) Additional Social History: PMD from non-affiliated facility. Patient Lives at home. Family History: Non-pertinent to today's complaint. Nursing Notes Reviewed Previous Medical Records requested via [facility] Web: Reviewed by me. EMERGENT LABS AND DIAGNOSTIC STUDIES: Results were reviewed and interpreted by me as below CBC: Shows no evidence of leukocytosis or anemia. Platelet count is normal Chemistry: Shows no electrolyte abnormalities Otherwise within normal limits, unremarkable or as noted above. 12-lead EKG Interpretation by Yolis Garrison MD: Normal Sinus Rhythm at 92 beats per minute Normal axis Normal intervals No ectopy No PVC No other acute ST or T wave abnormalities Overall impression is normal EKG PROCEDURE: PORTABLE CHEST 1V Impression: Minimal infiltrates could be disc atelectasis or early pneumonia. EMERGENCY DEPARTMENT COURSE/ MEDICAL DECISION MAKING: The patient was placed on a cardiac tech, continuous pulse oximetry and was given supplemental oxygen. I examined the patient, evaluated and addressed patient's chief complaint. The patient was treated with GI cocktail. EKG nonischemic. Xray no acute pathology and no hx of cough or fever, but patient is a chronic smoker, counseled on smoking cessation. Counseled on complying with HTN meds and metformin as prescribed by his PMD. Trop neg. Labs unremarkable. Likely gastritis/GERD. On re-assessment, patient feels much better. Stable for dc home with routine pmd f/u. The patient understands that todays Emergency Department evaluation does not represent a comprehensive medical workup, and it is impossible to diagnose all possible illnesses from a single Emergency Department visit. The patient verbalized understanding that it is absolutely necessary to have follow-up with regular primary care physician within 1-2 days for more detailed workup and continued exam. I explained the findings and plan to the patient, who expressed verbal understanding and agreed with plan for discharge and follow up. The patient was given after care instructions and welcomed to return to the ED for re-evaluation in 8-12 hours, especially for any new or worsening symptoms. Patient's blood pressure was elevated (>120/80) but appears stable without evidence of end organ damage, malignant hypertension, hypertensive emergency or urgency. The patient was counseled about the risks of hypertension and urged to pursue outpatient monitoring and therapy within a week with their primary care physician. The patient was stable at the time of discharge. DIAGNOSTIC IMPRESSION: 1. chest pain 2. gastritis 3. HTN DISPOSITION: Disposition: Discharge Home. Condition: Improved Follow-Up: PMD Prescriptions: pepcid, maalox Return to the Emergency Department for new or worsening symptoms. Dragon Disclaimer: Dragon Disclaimer: This electronic medical record was generated, in whole or in part, using a voice recognition dictation system. Departure Departure Impression: Primary Impression: Chest pain Additional Impressions: HTN (hypertension) Gastritis Disposition: HOME / SELF CARE / HOMELESS Condition: STABLE Referrals: FAISAL WINCHESTER MD (PCP) Scripts Mag Hydrox/Aluminum Hyd/Simeth (Maalox Advanced Suspension) 355 Ml Oral.susp 355 ML PO ONCE, #1 MISC Prov: SONIA GARRISON MD 01/14/22 Famotidine (PEPCID) 40 Mg Tablet 40 MG PO HS, #30 TAB Prov: SONIA GARRISON MD 01/14/22 SONIA GARRISON MD January 13, 2022 23:03
[2022-01-13 23:10] LABS: BASO # 0.1 x10^3/uL (0.0-0.2); BASO % 1 % (0-3); EOS # 0.2 x10^3/uL (0.0-0.7); EOS % 3 % (0-3); HEMATOCRIT 40.7 % (39.0-53.0); HEMOGLOBIN 14.1 g/dL (13.0-17.5); LYMPH # 3.9 x10^3/uL (1.0-4.8); LYMPH % 41 % (24-48); MEAN CORPUSCULAR HEMOGLOBIN 30 pg (25-35); MEAN CORPUSCULAR HGB CONC 35 g/dL (31-37); MEAN CORPUSCULAR VOLUME 85 fL (79-100); MONO # 0.5 x10^3/uL (0.0-1.1); MONO % 5 % (0-9); NEUT # 4.8 x10^3/uL (1.8-7.7); NEUT % 51 % (31-73); PLATELET COUNT 236 x10^3/uL (140-400); RED BLOOD COUNT 4.78 x10^6/uL (4.30-5.70); RED CELL DISTRIBUTION WIDTH 13.7 % (11.5-14.5); WHITE BLOOD COUNT 9.6 x10^3/uL (4.0-11.0)
--- NOTE | 2022-01-13 23:14 | RAD ---
XR CHEST 1V Clinical History: Reason: chest pressure / Spl. Instructions: / History: Technique: AP view of the chest was obtained at 01/13/2022 11:07 PM. Comparison: None. Findings: The heart is normal in size. The pulmonary vasculature is normal. There is vague patchy opacities in the lower lungs bilaterally. Impression: Minimal infiltrates could be disc atelectasis or early pneumonia. Electronically signed by: Raza Maravilla III, MD (01/13/2022 11:12 PM) [facility]
[2022-01-13 23:21] LABS: CALCIUM 8.1 mg/dL (8.5-10.1); GFR 98.2; POTASSIUM 4.4 mmol/L (3.5-5.1)
[2022-01-13 23:26] LABS: ALBUMIN 3.5 g/dL (3.4-5.0); TOTAL BILIRUBIN 0.6 mg/dL (0.2-1.0); TOTAL PROTEIN 6.9 g/dL (6.4-8.2)
[2022-01-13] MEDS ORDERED: FAMOTIDINE 20 MG/2 ML VIAL IVP ONE (23:30)
[2022-01-13] MEDS ORDERED: MORPHINE SULFATE 4 MG/ML INJ. IVP ONE (23:30)
[2022-01-13] MEDS ORDERED: ONDANSETRON PF 4 MG/2 ML VIAL. IVP ONE (23:30)
[2022-01-13] MEDS ORDERED: MAG HYDROX/ALUMINUM HYD/SIMETH 30 ML ORAL.SUSP PO ONE (23:30)
[2022-01-13] MEDS ORDERED: ASPIRIN 325 MG TABLET PO ONE (23:30)
[2022-01-14] VITALS: BP 164/104
[2022-01-14] MEDS ORDERED: FAMO40TA57 PO
[2022-01-14] MEDS ORDERED: MAG355OR11 PO
--- NOTE | 2022-01-14 03:48 | EKG ---
[facility] [address] [place] [address] Test Date: 2022-01-13 Test Time: 22:12:51 Pat Name: SANDRA MOBLEY Department: Room: Gender: M Special Needs Babysitter: : 1975 Requested By: SONIA THAPA Order Number: [id number] Reading MD: Mk Armenta MD Measurements Intervals [place] Rate: 92 P: 38 UT: 158 QRS: 29 QRSD: 90 T: 11 QT: 356 QTc: 445 Interpretive Statements SINUS RHYTHM Electronically Signed On 01-14-2022 8:58:35 CDT by Mk Armenta MD
== END 2022-01-14 00:20 | disposition home or self-care (01) ==
LOC: MERGE 22:05 → ER 22:05
DX: K29.70 Gastritis, unspecified, without bleeding (principal); R07.2 Precordial pain; I10 Essential (primary) hypertension; E11.9 Type 2 diabetes mellitus without complications; E78.00 Pure hypercholesterolemia, unspecified; F17.200 Nicotine dependence, unspecified, uncomplicated
CPT/HCPCS: 36415; 71045; 80053; 83690; 83880; 84484; 85025; 93005; 96374; 96375; 99285; J2270; J2405; J3490